=== PATIENT | female | born 1995 | race Caucasian/White ===

== ENCOUNTER 2024-12-09 17:12 | Emergency (ER) | payer SELFPAY ==
[~2024-12-09] VITALS: Ht 170.2 cm; Wt 96.0 kg
[2024-12-09 17:15] VITALS: O2SAT 100
[2024-12-09] MEDS ORDERED: IBUP-2029 MT (18:52)
[2024-12-09] MEDS ORDERED: LIDO700A30 TP (18:52)
[2024-12-09] MEDS ORDERED: METH-653 MT (18:52)
[2024-12-09] MEDS: METHOCARBAMOL 500MG TABLET PO ONE (18:58)
[2024-12-09] MEDS: IBUPROFEN 600MG TABLET PO ONE (18:58)
[2024-12-09 19:09] VITALS: BP 135/71; PULSE 76; RESP 20; TEMP 36.9; O2SAT 100
== END 2024-12-09 19:09 | disposition home or self-care (01) ==
LOC: ER 17:12
DX: S33.5XXA Sprain of ligaments of lumbar spine, initial encounter (principal); S83.92XA Sprain of unspecified site of left knee, initial encounter; S83.91XA Sprain of unspecified site of right knee, initial encounter; W10.9XXA Fall (on) (from) unspecified stairs and steps, initial encounter; Y93.89 Activity, other specified; Y92.89 Other specified places as the place of occurrence of the external cause; Y99.8 Other external cause status
CPT/HCPCS: 99283